=== PATIENT | female | born 1975 | race Two or more races ===

== ENCOUNTER 2019-10-27 14:50 | Emergency (ER) | payer MEDICAID, OTHER ==
[~2019-10-27] VITALS: Ht 149.9 cm; Wt 56.7 kg
[2019-10-27 15:04] VITALS: BP 116/97
[2019-10-27] MEDS ORDERED: cefTRIAXone SOD 1,000 MG VL IM ONE (16:30)
[2019-10-27] MEDS ORDERED: PROMETHAZINE HCL 25 MG/ML 1ML IM ONE (16:30)
[2019-10-27] MEDS ORDERED: KETOROLAC TROMETH 60MG/2ML VIAL IM ONE (16:30)
== END 2019-10-27 16:57 | disposition home or self-care (01) ==
LOC: ER 14:50
DX: N39.0 Urinary tract infection, site not specified (principal)
CPT/HCPCS: 81025; 96372; 99284; J0696; J1885; J2550